=== PATIENT | female | born 1960 | race Caucasian/White ===

== ENCOUNTER 2020-10-01 20:47 | Emergency (ER) | payer OTHER ==
[2020-10-01 22:35] LABS: HEMOGLOBIN 11.9 gm/dl (12.3-15.3); RED BLOOD COUNT 4.14 M/UL (4.00-5.10); WHITE BLOOD COUNT 14.4 K/UL (4.5-11.0)
[2020-10-01 22:50] LABS: BUN/CREATININE RATIO 24 (0-10)
[2020-10-02 06:18] LABS: BUN/CREATININE RATIO 23 (0-10)
[2020-10-02] MEDS ORDERED: TORADOL 10 MG T10 MG PO (06:51)
[2020-10-02] MEDS ORDERED: KETOROLAC TROME10 MG PO (07:27)
== END 2020-10-02 07:30 | disposition home or self-care (01) ==
LOC: ER1 20:47
PROVIDERS: Family Medicine
DX: M54.41 Lumbago with sciatica, right side (principal); M41.9 Scoliosis, unspecified; E87.6 Hypokalemia; E27.8 Other specified disorders of adrenal gland; Z88.6 Allergy status to analgesic agent; Z88.8 Allergy status to other drugs, medicaments and biological substances; Z79.899 Other long term (current) drug therapy
CPT/HCPCS: 71045; 72131; 72170; 80048; 80053; 82550; 82553; 83874; 84484; 85025; 93005; 96365; 96366; 96375; 99284; J1642; J1885; J2405; J2930; J3480

== ENCOUNTER 2020-10-06 12:03 | Emergency (ER) | payer OTHER ==
[~2020-10-06 12:03] MED LIST: KETOROLAC TROME10 MG PO; TORADOL 10 MG T10 MG PO
[2020-10-06 14:22] LABS: HEMOGLOBIN 10.6 gm/dl (12.3-15.3); RED BLOOD COUNT 3.67 M/UL (4.00-5.10); WHITE BLOOD COUNT 12.2 K/UL (4.5-11.0)
[2020-10-06] MEDS ORDERED: Voltaren Gel 1% TOP (16:46)
== END 2020-10-06 18:00 | disposition home or self-care (01) ==
LOC: ER1 12:03
PROVIDERS: Physician Assistant Medical
DX: R07.9 Chest pain, unspecified (principal); M54.5 Low back pain; G89.29 Other chronic pain; R00.2 Palpitations; I12.9 Hypertensive chronic kidney disease with stage 1 through stage 4 chronic kidney disease, or unspecified chronic kidney disease; E11.22 Type 2 diabetes mellitus with diabetic chronic kidney disease; N18.9 Chronic kidney disease, unspecified; I25.2 Old myocardial infarction; J45.909 Unspecified asthma, uncomplicated; F17.210 Nicotine dependence, cigarettes, uncomplicated; Z79.4 Long term (current) use of insulin; Z88.6 Allergy status to analgesic agent; Z88.8 Allergy status to other drugs, medicaments and biological substances; Z79.01 Long term (current) use of anticoagulants; Z87.39 Personal history of other diseases of the musculoskeletal system and connective tissue
CPT/HCPCS: 71045; 80053; 82550; 82553; 83735; 83874; 84484; 85025; 93005; 96374; 96375; 99285; J2270; J2405

== ENCOUNTER 2020-10-08 23:27 | Emergency (ER) | payer SELFPAY ==
[~2020-10-08 23:27] MED LIST changes: +Voltaren Gel 1% TOP
== END 2020-10-08 23:45 | disposition left against medical advice (07) ==
LOC: ER1 23:27
DX: R07.9 Chest pain, unspecified (principal); Z53.21 Procedure and treatment not carried out due to patient leaving prior to being seen by health care provider
CPT/HCPCS: 93005